=== PATIENT | female | born 1975 | race Two or more races ===

== ENCOUNTER → 2016-08-01 | Day surgery (SDC) | payer OTHER ==
--- NOTE | 2016-08-02 15:30 | PATH ---
Surgical Pathology Report Patient Name: NIC MALDONADO [facility]. Rec. #: [id number] /Age/Gender: 1975 (Age: 41) / F Account: [id number] Location: [facility] Taken: 08/01/2016 Received: 08/01/2016 Reported: 08/02/2016 Physicians: Crispin Banda M.D. Specimen(s) Received LEFT BREAST CALCIFICATIONS STEREOTACTIC BIOPSY Clinical History Nonpalpable lesion No calcifications seen in specimen Final Diagnosis BREAST, LEFT, CALCIFICATIONS, STEREOTACTIC BIOPSY: BENIGN BREAST TISSUE SHOWING STROMAL FIBROSIS, HEMOSIDERIN-LADEN MACROPHAGES AND FOCAL FOREIGN BODY GIANT CELL REACTION WITH RARE ASSOCIATED CALCIFIC MATERIAL, SUGGESTIVE OF HEMORRHAGIC CYST WITH RUPTURE AND REACTION. Electronically Signed Valery Ruiz M.D. Gross Description Received in formalin, labeled "left breast no calcifications seen," is a 6.5 x 3.5 x 0.4 cm aggregate of multiple briscoe-yellow, irregular portions of fibroadipose tissue admixed with blood clot. The formalin is filtered and the specimen is entirely submitted in 5 cassettes. Time to formalin fixation: 5 minutes Total formalin fixation time: Approximately 6 hours. /08/01/2016 saudi08/01/2016
== END | disposition home or self-care (01) ==
LOC: FMAMMOTONE 11:13
PROVIDERS: ATTEND Family Medicine
PROC: 0HBU3ZX Excision of Left Breast, Percutaneous Approach, Diagnostic (ICD-10-PCS; principal; 2016-08-01)
DX: N63 Unspecified lump in breast (principal); N60.32 Fibrosclerosis of left breast; N64.89 Other specified disorders of breast; R92.1 Mammographic calcification found on diagnostic imaging of breast
CPT/HCPCS: 19081; 87899; 88305-TC; A4648

== ENCOUNTER 2016-08-15 07:24 | Day surgery (SDC) | payer OTHER ==
[2016-08-13 09:47] VITALS: BMI 27.4
--- NOTE | 2016-08-13 14:19 | HP ---
Admitting History and Physical - Primary Care Physician PCP: Qi Solano - Admission Chief Complaint: left breast calcifications History of Present Illness: 41 yo female noted to have left UOQ calcifications on screening mammogram. Patient underwent a stereo bx (08/01/2016) which was c/w stromal fibrosis and foreign body giant cell reaction. The results were discordant and therefore now a surgical excision is being recommended. Patient presenting for left WE with NL. History Source: Patient Limitations to Obtaining History: No Limitations - Past Medical History ...LMP: 08/12/16 ...: No Heme/Onc: Yes: Anemia - Past Surgical History Additional Past Surgical History: bilateral breast reduction 2012 - Smoking History Smoking history: Never smoked Have you smoked in the past 12 months: No Aproximately how many cigarettes per day: 0 - Alcohol/Substance Use Hx Alcohol Use: No - Social History ADL: Independent History of Recent Travel: No (goes every february and june) Home Medications - Allergies Allergies/Adverse Reactions: Allergies Allergy/AdvReac Type Severity Reaction Status Date / Time No Known Drug Allergies Allergy Verified 08/13/16 09:26 - Home Medications Home Medications: Ambulatory Orders Iron,Carbonyl/Ascorbic Acid [Fe C Tablet] 1 tab PO DAILY 01/18/16 Family Disease History - Family Disease History Family History: Unremarkable Review of Systems - Review of Systems Constitutional: reports: No Symptoms Cardiovascular: reports: No Symptoms Respiratory: reports: No Symptoms Physical Examination Constitutional: Yes: Well Nourished Breast(s): Yes: Other (Well healed bilateral scars from reduction surgery. No suspicious masses or adenopathy noted bilaterally.) Problem List - Problems (1) Breast calcification, left Code(s): R92.1 - MAMMOGRAPHIC CALCIFCN FOUND ON DIAGNOSTIC IMAGING OF BREAST Assessment/Plan pLAN: Left breast WE with NL
[2016-08-15] MEDS ORDERED: PROPOFOL 20 ML ONE (09:45)
[2016-08-15] MEDS ORDERED: MIDAZOLAM HCL 2 MG/2 ML SINGLE DOSE VIAL ONE (09:45)
[2016-08-15] MEDS ORDERED: LIDOCAINE HCL 1%, 10 MG/ML (20ML VIAL) ONE (09:52)
[2016-08-15] MEDS ORDERED: KETOROLAC TROMETHAMINE 30 MG/1 ML VIAL IVPUSH PRN (10:05)
[2016-08-15] MEDS ORDERED: DEXTROSE 5%-0.45% SALINE 1,000 ML IV SCH (10:15)
[2016-08-15] MEDS ORDERED: DEXAMETHASONE SOD PHOSPHATE 4 MG/1 ML VIAL ONE (10:25)
[2016-08-15] MEDS ORDERED: ceFAZolin SODIUM 1 GM VIAL ONE (10:25)
[2016-08-15] MEDS ORDERED: ONDANSETRON 4 MG/2 ML VIAL IVPB PRN (10:30)
[2016-08-15] MEDS ORDERED: ONDANSETRON 4 MG/2 ML VIAL ONE (11:15)
[2016-08-15] MEDS ORDERED: LACTATED RINGERS SOLUTION 1,000 ML IV SCH (11:45)
[2016-08-15] MEDS ORDERED: KETOROLAC TROMETHAMINE 30 MG/1 ML VIAL ONE (12:13)
[2016-08-15] MEDS ORDERED: oxyCODONE HCL 5 MG TABLET PO PRN (12:20)
[2016-08-15 13:23] VITALS: TEMP 98.1
[2016-08-15] MEDS ORDERED: oxyCODONE HCL 5 MG TABLET ONE (13:26)
[2016-08-15 14:36] VITALS: BP 127/75; PULSE 94
--- NOTE | 2016-08-15 16:52 | OP ---
DATE OF OPERATION: 08/15/2016 PREOPERATIVE DIAGNOSIS: Left breast microcalcifications. POSTOPERATIVE DIAGNOSIS: Left breast microcalcifications. PROCEDURE: Left breast excisional biopsy with needle localization. SURGEON: Kathleen Solano MD BELL VALET: JEAN-PIERRE Mcrae ANESTHESIA: General. ANESTHESIOLOGIST: SPECIMEN: 1. Left breast tissue. 2. Inferior margin. ESTIMATED BLOOD LOSS: Minimal. INDICATION FOR PROCEDURE: The patient is a 41-year-old woman who had a baseline mammogram which showed suspicious calcifications in the left breast. A stereotactic biopsy was performed and was benign. However, the findings were felt to be discordant, and excision of the area was recommended. The procedure, risks, and complications were discussed with the patient prior to surgery. DESCRIPTION OF PROCEDURE: The patient was taken to breast imaging where she underwent localization of the clip in the left upper outer quadrant. She was then taken to ambulatory surgery where informed consent was obtained. The left breast was marked to establish laterality. She was then taken to the operating room and placed on the operating table in the supine position. Sequential compression devices were placed on both legs. General anesthesia was initiated. The left breast was prepped and draped in the usual fashion. A localizing wire was seen exiting the upper outer breast. The breast was prepped and draped in the usual fashion. A timeout was performed. An incision was made just inferior to the localizing wire. The incision was deepened using electrocautery. The dissection continued around the needle going down towards the chest wall. Once the tissue was sufficiently mobilized, the needle was disassembled, and the wire was brought into the operative field. The specimen was then removed and labeled with silk sutures with a long lateral suture and a short superior suture. A specimen radiograph did not show the clip. An additional margin of tissue was taken from the inferior part of the dissection. The clip was visualized in this specimen. The second specimen was labeled with a stitch at the final margin. All specimens were placed in formalin and sent to pathology for further examination. The wound was inspected for hemostasis which was satisfactory. The deep tissue was closed with interrupted sutures of 2-0 chromic. The dermis was closed with interrupted sutures of 3-0 Vicryl. The skin was infiltrated with 0.25% Marcaine. The skin was closed with a running subcuticular closure of 4-0 Monocryl. The wound was cleaned and dressed with a sterile gauze dressing. The patient tolerated the procedure well. At the end of the procedure, all sponge and instrument counts were correct. She was taken to the recovery area in satisfactory condition. KATHLEEN SOLANO M.D. [id number] MTDD
--- NOTE | 2016-08-16 15:21 | PATH ---
Surgical Pathology Report Patient Name: NIC MALDONADO [facility]. Rec. #: [id number] /Age/Gender: 1975 (Age: 41) / F Account: [id number] Location: [facility] Taken: 08/15/2016 Received: 08/15/2016 Reported: 08/16/2016 Physicians: Qi Solano M.D. Specimen(s) Received A: LEFT BREAST WIDE EXCISION B: LEFT BREAST INFERIOR MARGIN Clinical History Mammographic findings: Microcalcification Discordant pathology after core biopsy Final Diagnosis A. BREAST, LEFT, WIDE EXCISION: BENIGN BREAST TISSUE SHOWING FAT NECROSIS, FIBROSIS AND HISTIOCYTIC/GIANT CELL REACTION, SUGGESTIVE OF CYST RUPTURE WITH REACTION. B. BREAST, LEFT, INFERIOR MARGIN, EXCISION: BENIGN BREAST TISSUE SHOWING FOCI OF FRESH AND OLD HEMORRHAGE, FAT NECROSIS, FIBROSIS AND FOREIGN BODY GIANT CELL REACTION, SUGGESTIVE OF CYST RUPTURE WITH REACTION. Electronically Signed Valery Ruiz M.D. Gross Description A. Received in formalin, labeled "left breast wide excision suture lanier long lateral short superior," and is a 4.7 x 3.8 x 2.0 cm. briscoe-yellow, irregular, portion of fibroadipose tissue with a needle localization wire present within the specimen container but separate from the specimen. There is a short suture marking the superior aspect and a long suture marking the lateral aspect, per the surgeon. There is no skin present. An additional 2.5 x 2.2 x 0.8 cm portion of tissue is present within the specimen container. The specimen is inked as follows: superior and lateral blue; inferior green; medial yellow; anterior red; deep black. The specimen is serially sectioned from lateral to medial. Sectioning reveals yellow adipose tissue with an area suggestive of a prior biopsy site towards the anterior portion of the specimen. Nurse Intern sections are submitted in 10 cassettes as follows: 1- 5, prior biopsy site with superior, anterior, and inferior margins; 6, deep margin; 7, medial margin; 8, lateral margin; 9,10- sections from additional portion of tissue. Time to formalin fixation: 11 minutes Total formalin fixation time: Approximately 9 hours. B. Received in formalin labelled "left breast inferior margin suture at lateral margin" is a 2.6 x 2.2 x 1.2 cm portion of yellow fatty tissue with a suture marking the final margin. The margin is inked. Sectioned and totally submitted in 5 cassettes [facility]/08/15/2016 [facility]/08/15/2016
== END 2016-08-15 14:30 | disposition home or self-care (01) ==
LOC: FASU 07:24
PROVIDERS: ATTEND Surgery
PROC: 0HBU0ZX Excision of Left Breast, Open Approach, Diagnostic (ICD-10-PCS; principal; 2016-08-15 10:38)
DX: N64.1 Fat necrosis of breast (principal); N60.32 Fibrosclerosis of left breast; R92.1 Mammographic calcification found on diagnostic imaging of breast
CPT/HCPCS: 19281; 84703; 88307-TC; 94760

== ENCOUNTER 2017-02-11 15:46 | Emergency (ER) | payer OTHER ==
[2017-02-11 16:20] VITALS: BMI 28.3
[2017-02-11] MEDS ORDERED: SODIUM CHLORIDE 1,000 ML IV STA (17:06)
--- NOTE | 2017-02-11 17:09 | PDOC ---
History of Present Illness - History of Present Illness Initial Comments: 02/11/17 17:09 41F w/ hx of irregular periods and anemia (non-adherent in taking iron pills) presenting with lightheadedness. She reports 12 days of heavy vaginal bleeding with clots which is more than normal for her. She states that she became lightheaded, weak, nauseas and had 2 episodes of emesis today. On the way to her examination room, pt had a syncopal episode. 02/11/17 17:14 02/11/17 18:03 <Patricio Garcia - Last Filed: 02/11/17 19:26> <Kesha Conde - Last Filed: 02/12/17 02:22> - General Chief Complaint: Lightheaded Stated Complaint: VAGINAL BLEEDING, LIGHTHEADED, VOMIT Time Seen by Provider: 02/11/17 16:40 Past History - Past Medical History Anemia: Yes Asthma: No Cancer: No Cardiac Disorders: No CVA: No COPD: No CHF: No Dementia: No Diabetes: No GI Disorders: No Disorders: No HTN: No Hypercholesterolemia: No Liver Disease: No Suicide Attempt (Hx): No Seizures: No Thyroid Disease: No Comment:: 02/11/17 17:14 PMH: anemia PSH: b/l breast reduction, lumpectomy, 2 c-sections Meds: iron Allergies: NKDA Fam Hx: DM Social Hx: denies toxic habits 02/11/17 17:15 - Surgical History Abdominal Surgery: No Appendectomy: No Cardiac Surgery: No Cholecystectomy: No Lung Surgery: No Neurologic Surgery: No Orthopedic Surgery: No - Psycho/Social/Smoking Cessation Hx Anxiety: No Suicidal Ideation: No Smoking Status: No Smoking History: Never smoked Have you smoked in the past 12 months: No Number of Cigarettes Smoked Daily: 0 Hx Alcohol Use: No Drug/Substance Use Hx: No Substance Use Type: None Hx Substance Use Treatment: No <Patricio Garcia - Last Filed: 02/11/17 19:26> <Kesha Conde - Last Filed: 02/12/17 02:22> - Past Medical History Allergies/Adverse Reactions: Allergies Allergy/AdvReac Type Severity Reaction Status Date / Time No Known Drug Allergies Allergy Verified 02/11/17 16:17 Home Medications: Ambulatory Orders Iron,Carbonyl/Ascorbic Acid [Fe C Tablet] 1 tab PO DAILY 07/14/16 Review of Systems - Review of Systems Comments:: 02/11/17 17:16 GENERAL: No fever, chills, night sweats,+ weakness. HEAD, EYES, EARS, NOSE AND THROAT: No change in vision, ear pain, or sore throat CARDIOVASCULAR: No chest pain or palpitations RESPIRATORY: No cough, wheezing, or hemoptysis. GASTROINTESTINAL: + nausea, + vomiting, no diarrhea, constipation, or blood in the stool. GENITOURINARY: No dysuria, frequency, or urgency MUSCULOSKELETAL: No joint or muscle swelling or pain. SKIN: No rashes or pruritis ENDOCRINE: No increased thirst. No abnormal weight change NEUROLOGIC: No headache, + dizziness, + loss of consciousness. <Patricio Garcia - Last Filed: 02/11/17 19:26> *Physical Exam - Vital Signs Last Vital Signs Temp Pulse Resp BP Pulse Ox 98.8 F 90 18 124/65 99 02/11/17 16:17 02/11/17 16:17 02/11/17 16:17 02/11/17 16:17 02/11/17 16:17 - Physical Exam Comments: 02/11/17 17:17 GENERAL: Awake, alert, and fully oriented, in acute distress HEAD: normocephalic, atraumatic HEENT: PERRLA, EOMI, mucous membranes dry NECK: Normal ROM, supple, no lymphadenopathy, JVD, or masses HEART: tachycardic, normal S1 and S2, no murmurs, rubs or gallops, peripheral pulses normal and equal bilaterally. LUNGS: CTAB, no wheezing, no rales ABDOMEN: Soft, mildly tender in all 4 quadrants, nondistended, normoactive bowel sounds. No guarding, no rebound. No masses EXTREMITIES: Normal range of motion, no edema. SKIN: Warm, dry, no rashes or lesions noted. NEUROLOGICAL: Cranial nerves II through XII grossly intact. Normal speech Pelvic Exam: <Patricio Garcia - Last Filed: 02/11/17 19:26> - Vital Signs Last Vital Signs Temp Pulse Resp BP Pulse Ox 98.5 F 76 18 126/74 100 02/11/17 19:46 02/11/17 19:46 02/11/17 19:46 02/11/17 19:46 02/11/17 19:46 <Kesha Conde - Last Filed: 02/12/17 02:22> ED Treatment Course - LABORATORY CBC & Chemistry Diagram: 02/11/17 17:25 02/11/17 17:25 <Patricio aGrcia - Last Filed: 02/11/17 19:26> - LABORATORY CBC & Chemistry Diagram: 02/11/17 17:25 02/11/17 17:25 - ADDITIONAL ORDERS Additional order review: Laboratory Results 02/11/17 02/11/17 02/11/17 18:11 17:25 17:25 INR PTT (Actin FS) Sodium 140 Potassium 4.0 Chloride 104 Carbon Dioxide 26 Anion Gap 10 BUN 11 Creatinine 0.9 D Creat Clearance w eGFR > 60 Random Glucose 97 Calcium 8.6 Total Bilirubin 0.3 D AST 12 L ALT 18 Alkaline Phosphatase 66 Creatine Kinase 79 Troponin I < 0.02 Total Protein 7.9 Albumin 3.6 Urine Color Urine Appearance Urine pH Urine Protein Urine Glucose (UA) Urine Ketones Urine Blood Urine Nitrite Urine Bilirubin Urine Urobilinogen Ur Leukocyte Esterase Urine RBC Urine WBC Ur Epithelial Cells Urine HCG, Qual Blood Type Cancelled Antibody Screen Cancelled Spec Expiration Date Cancelled 02/11/17 02/11/17 17:25 17:25 INR 1.03 PTT (Actin FS) 26.8 L Sodium Potassium Chloride Carbon Dioxide Anion Gap BUN Creatinine Creat Clearance w eGFR Random Glucose Calcium Total Bilirubin AST ALT Alkaline Phosphatase Creatine Kinase Troponin I Total Protein Albumin Urine Color Colorless Urine Appearance Clear Urine pH 8.0 Urine Protein Negative Urine Glucose (UA) Negative Urine Ketones Negative Urine Blood 1+ H Urine Nitrite Negative Urine Bilirubin Negative Urine Urobilinogen Negative Ur Leukocyte Esterase Negative Urine RBC <1 Urine WBC 1 Ur Epithelial Cells Rare Urine HCG, Qual Negative Blood Type Antibody Screen Spec Expiration Date 02/11/17 17:25 RBC 3.96 MCV 72.9 L MCHC 31.8 L RDW 19.5 H MPV 8.8 Neutrophils % 70.8 D Lymphocytes % 20.7 D Monocytes % 6.9 Eosinophils % 0.2 D Basophils % 1.4 D - Medications Given in the ED: ED Medications Discontinued Medications Generic Name Dose Route Start Last Admin Trade Name Freq PRN Reason Stop Dose Admin Acetaminophen 1,000 mg 02/11/17 18:43 02/11/17 19:02 Ofirmev Injection - IVPB 02/11/17 18:44 1,000 mg ONCE ONE Administration Sodium Chloride 1,000 mls @ 1,000 mls/hr 02/11/17 17:06 02/11/17 17:33 Normal Saline - IV 02/11/17 18:05 1,000 mls/hr ASDIR STA Administration Sodium Chloride 500 mls @ 500 mls/hr 02/11/17 18:42 02/11/17 18:56 Normal Saline - IV 02/11/17 19:41 500 mls/hr ASDIR STA Administration <Kesha Conde - Last Filed: 02/12/17 02:22> Medical Decision Making - Medical Decision Making 02/11/17 18:03 41F w/ hx of irregular periods and anemia (non-adherent in taking iron pills) presenting with vaginal bleeding for 12 days with lightheadedness, emesis, weakness, and an episode of syncope. Etiology likely due to anemia and dehydration. -CBC: Hgb of 9 and MCV of 79 -CMP: wnl -PT/PTT/INR: wnl -EKG: normal sinus rhythm -cardiac profile: normal -UA: -preg test: 02/11/17 19:10 02/11/17 19:12 02/11/17 19:26 <Patricio Garcia - Last Filed: 02/11/17 19:26> *DC/Admit/Observation/Transfer - Discharge Dispostion Admit: No <Patricio Garcia - Last Filed: 02/11/17 19:26> <Kesha Conde - Last Filed: 02/12/17 02:22> Diagnosis at time of Disposition: Syncope Qualifiers: Syncope type: unspecified Qualified Code(s): R55 - Syncope and collapse - Discharge Dispostion Disposition: HOME - Referrals Referrals: Nohemy William MD [Primary Care Provider] - - Patient Instructions Printed Discharge Instructions: DI for Syncope in Adults (Fainting), Iron- Deficiency Anemia, DI for Vaginal Bleeding Additional Instructions: Your symptoms of lightheadedness, weakness, nausea, and vomiting are likely due to anemia and dehydration in the setting of your recent significant vaginal bleeding. Your hemoglobin level was found to be 9 which is consistent with your baseline. You were given normal saline and tylenol for your pain. At home, drink plenty of fluids, take your iron pills as directed, and see your OBGYN within several days to follow up and discuss taking medications like oral contraceptives to decrease your menstrual bleeding. If your symptoms worsen, or you develop any other concerning symptoms, return to the ED. ED Attending (Resident) HPI <Patricio Garcia - Last Filed: 02/11/17 19:26> - General Exam Limitations: No Limitations - History of Present Illness Severity: mild Associated Symptoms: reports: weakness - Attending Attestation I agree with resident's note.: Yes <Kesha Conde - Last Filed: 02/12/17 02:22> - General Chief Complaint: Lightheaded Stated Complaint: VAGINAL BLEEDING, LIGHTHEADED, VOMIT Time Seen by Provider: 02/11/17 16:40
[2017-02-11 18:10] LABS: BASOPHIL 1.4 % (0-2.0); EOSINOPHIL 0.2 % (0-4.5); MCH 23.2 pg (25.7-33.7); MCHC 31.8 g/dl (32.0-36.0); MEAN CELL VOLUME 72.9 fl (80-96); MEAN PLT VOLUME 8.8 fl (7.5-11.1); NEUTROPHILS 70.8 % (42.8-82.8); PLATELET COUNT 344 K/MM3 (134-434); RDW 19.5 % (11.6-15.6); WHITE BLOOD COUNT 7.2 K/mm3 (4.0-10.0)
[2017-02-11 18:21] LABS: INR 1.03 (0.82-1.09); PROTHROMBIN TIME (PATIENT) 11.3 SEC (9.98-11.88)
[2017-02-11 18:24] LABS: ACTIVATED PTT 26.8 SECONDS (26.9-34.4)
[2017-02-11 18:32] LABS: ALBUMIN 3.6 g/dl (3.4-5.0); ANION GAP 10 (8-16); BILIRUBIN,TOTAL 0.3 mg/dL (0.2-1.0); CALCIUM 8.6 mg/dL (8.5-10.1); CO2 26 mmol/L (21-32); CREATININE 0.9 mg/dL (0.55-1.02); GLUCOSE,RANDOM 97 mg/dL (74-106); SGOT/AST 12 U/L (15-37); SGPT/ALT 18 U/L (12-78)
[2017-02-11 18:33] LABS: ALK PHOS 66 U/L (45-117); TOT PROT 7.9 g/dl (6.4-8.2)
[2017-02-11 18:36] LABS: CPK 79 IU/L (26-192); TROPONIN I < 0.02 ng/ml (0.00-0.05)
[2017-02-11] MEDS ORDERED: SODIUM CHLORIDE 500 ML IV STA (18:42)
[2017-02-11] MEDS ORDERED: ACETAMINOPHEN 1000 MG/100 ML VIAL (NON FORMULARY) IVPB ONE (18:43)
[2017-02-11 19:25] LABS: URINE APPEARANCE CLEAR; URINE BILIRUBIN NEGATIVE (NEGATIVE); URINE BLOOD 1+ (NEGATIVE); URINE COLOR COLORLESS; URINE GLUCOSE (UA) NEGATIVE (NEGATIVE); URINE KETONE NEGATIVE (NEGATIVE); URINE LEUK ESTERASE NEGATIVE (NEGATIVE); URINE NITRITE NEGATIVE (NEGATIVE); URINE PROTEIN NEGATIVE (NEGATIVE); URINE UROBILINOGEN NEGATIVE mg/dL (0.2-1.0)
[2017-02-11 19:36] LABS: URINE RBC <1 /hpf (0-3); URINE WBC 1 /hpf (3-5)
[2017-02-11 19:46] VITALS: BP 126/74; PULSE 76; TEMP 98.5
--- NOTE | 2017-02-11 20:40 | PDOC ---
Attending Attestation - Resident Resident Name: Patricio Garcia - ED Attending Attestation I have performed the following: I have examined & evaluated the patient, The case was reviewed & discussed with the resident, I agree w/resident's findings & plan, Exceptions are as noted - HPI HPI: 02/12/17 02:23 41 yo female p/w vaginal bleeding and feeling dizzy heent wnl lungs cta b/l cvs [id number] abd no rebound no guarding neuro no gross focal deficits 02/12/17 02:24 - Physicial Exam PE: 02/12/17 02:24 please see above note - Medical Decision Making 02/11/17 20:40 pt is stable /discharged to followup with her best worker
--- NOTE | 2017-02-12 14:45 | EKG ---
Test Reason : Blood Pressure : / mmHG Vent. Rate : 079 BPM Atrial Rate : 079 BPM P-R Int : 144 ms QRS Dur : 090 ms QT Int : 394 ms P-R-T Axes : 070 061 031 degrees QTc Int : 451 ms NORMAL SINUS RHYTHM NORMAL ECG WHEN COMPARED WITH ECG OF 14-AUG-2016 09:58, NO SIGNIFICANT CHANGE WAS FOUND Confirmed by YULISSA SAINI MD ([id number]) on 02/12/2017 2:45:00 PM Referred By: Confirmed By:YULISSA SAINI MD
== END 2017-02-11 20:56 | disposition home or self-care (01) ==
LOC: JER 15:46
PROC: 3E033NZ Introduction of Analgesics, Hypnotics, Sedatives into Peripheral Vein, Percutaneous Approach (ICD-10-PCS; principal; 2017-02-11)
PROC: 3E0337Z Introduction of Electrolytic and Water Balance Substance into Peripheral Vein, Percutaneous Approach (ICD-10-PCS; 2017-02-11)
DX: R55 Syncope and collapse (principal); D64.9 Anemia, unspecified
CPT/HCPCS: 36415; 80053; 81003; 81015; 84484; 84703; 85025; 85610; 85730; 93005; 93010; 96361; 96374; 99285-25

== ENCOUNTER 2019-01-12 02:12 | Emergency (ER) | payer OTHER ==
[2019-01-12 02:48] VITALS: BP 133/83; PULSE 81; TEMP 98.7; BMI 26.6
--- NOTE | 2019-01-12 04:05 | PDOC ---
*Physical Exam - Vital Signs Last Vital Signs Temp Pulse Resp BP Pulse Ox 98.7 F 81 19 133/83 98 01/12/19 02:12 01/12/19 02:12 01/12/19 02:12 01/12/19 02:12 01/12/19 02:12 Medical Decision Making - Medical Decision Making 01/12/19 04:05 *DC/Admit/Observation/Transfer Diagnosis at time of Disposition: Patient left before evaluation by physician - Discharge Dispostion Disposition: ELOPED - Referrals Referrals: Angie Rivas MD [Primary Care Provider] - - Patient Instructions - Post Discharge Activity
== END 2019-01-12 04:06 | disposition left against medical advice (07) ==
LOC: JER 02:12
DX: Z53.21 Procedure and treatment not carried out due to patient leaving prior to being seen by health care provider (principal)
CPT/HCPCS: 99281-25

== ENCOUNTER 2020-04-16 15:20 | Emergency (ER) | payer OTHER ==
[2020-04-16 15:26] VITALS: BP 125/87; PULSE 89; TEMP 97; BMI 28.8
--- OUTSIDE RECORDS SUMMARY | 2020-04-16 15:35 | XMS ---
:1975 Author Organization [facility] Support Name Relationship Address Phone BRITTANY [place] [address] [place] [address] AMIRA MALDONADO SISTER [address] [place] [address] AMIRA MALDONADO Unavailable [address] [place] [address] Re-disclosure Warning The records that you are about to access may contain information from federally- assisted alcohol or drug abuse programs. If such information is present, then the following federally mandated warning applies: This information has been disclosed to you from records protected by federal confidentiality rules (42 CFR part 2). The federal rules prohibit you from making any further disclosure of this information unless further disclosure is expressly permitted by the written consent of the person to whom it pertains or as otherwise permitted by 42 CFR part 2. A general authorization for the release of medical or other information is NOT sufficient for this purpose. The Federal rules restrict any use of the information to criminally investigate or prosecute any alcohol or drug abuse patient.The records that you are about to access may contain highly sensitive health information, the redisclosure of which is protected by Article 27-F of the [facility] [place] Public Health law. If you continue you may haveaccess to information: Regarding HIV / AIDS; Provided by facilities licensed or operated by the [facility] [place] Office of Mental Health; or Provided by the [facility] [place] Office for People With Developmental Disabilities. If such information is present, then the following [facility] [place] mandated warning applies: This information has been disclosed to you from confidential records which are protected by state law. State law prohibits you from making any further disclosure of this information without the specific written consent of the person to whom it pertains, or as otherwise permitted by law. Any unauthorized further disclosure in violation of state law may result in a fine or care home sentence or both. A general authorization for the release of medical or other information is NOT sufficient authorization for further disclosure. Insurance Providers Payer name Policy type Policy ID Covered Covered green party's Policy P ronak / Coverage green party ID relationship to [place] [employer] type [place] [employer] [id number]
--- NOTE | 2020-04-16 16:22 | PDOC ---
History of Present Illness - General Chief Complaint: Pain Stated Complaint: LT BREAST PAIN Time Seen by Provider: 04/16/20 15:33 History Source: Patient Exam Limitations: No Limitations - History of Present Illness Initial Comments: 04/16/20 16:17 45 y/o Female presents to ED with complaints of left breast pain. Patient states had a mammogram done 2 days ago which she states was done "aggressively" patient states her right breast does not hurt and states every time she moves or touched her left breast it is painful. Patient denies redness swelling, nipple drainage, or skin discoloration. Is this a multiple visit Asthma Patient?: No Timing/Duration: other Severity: mild Associated Symptoms: reports: denies symptoms Past History - Travel History Traveled outside of the country in the last 30 days: No Close contact w/someone who was outside of country & ill: No - Medical History Allergies/Adverse Reactions: Allergies Allergy/AdvReac Type Severity Reaction Status Date / Time No Known Drug Allergies Allergy Verified 04/16/20 15:26 Home Medications: Ambulatory Orders Iron,Carbonyl/Ascorbic Acid [Fe C Tablet] 1 tab PO DAILY 01/18/16 Oxycodone HCl/Acetaminophen [Percocet 5-325 mg Tablet] 1 tab PO TID PRN #9 tab MDD 3 04/16/20 Anemia: Yes Asthma: No Cancer: No Cardiac Disorders: No CVA: No COPD: No CHF: No Dementia: No Diabetes: No GI Disorders: No Disorders: No HTN: No Hypercholesterolemia: No Liver Disease: No Seizures: No Thyroid Disease: No - Surgical History Abdominal Surgery: No Appendectomy: No Cardiac Surgery: No Cholecystectomy: No Lung Surgery: No Neurologic Surgery: No Orthopedic Surgery: No - Reproductive History Is Patient Now?: No - Psycho-Social/Smoking History Patient Lives Alone: No Lives with/in: spouse/SO Smoking Status: No Smoking History: Never smoked Have you smoked in the past 12 months: No Number of Cigarettes Smoked Daily: 0 Review of Systems - Review of Systems Able to Perform ROS?: No Is the patient limited Turkish proficient: No Constitutional: No: Symptoms Reported Musculoskeletal: No: Symptoms Reported Integumentary: Yes: Other (Left breast pain) Neurological: No: Symptoms reported *Physical Exam - Vital Signs Last Vital Signs Temp Pulse Resp BP Pulse Ox 97 F L 89 18 125/87 99 04/16/20 15:23 04/16/20 15:23 04/16/20 15:23 04/16/20 15:23 04/16/20 15:23 - Physical Exam General Appearance: Yes: Nourished, Appropriately Dressed. No: Apparent Distress Neck: positive: Supple. negative: Lymphadenopathy (R), Lymphadenopathy (L) Respiratory/Chest: positive: Lungs Clear, Normal Breath Sounds, Other (Left breast tender to the axillary region extending to the lateral aspect of left breast. No palpable mass no fluctuance no redness no increased warmth no nipple drainage no dimpling no skin discoloration. Right breast intact without tenderness.). negative: Respiratory Distress, Accessory Muscle Use Cardiovascular: positive: Regular Rhythm, Regular Rate. negative: Murmur Gastrointestinal/Abdominal: positive: Soft. negative: Tenderness Integumentary: positive: Normal Color, Dry, Warm, Moist Neurologic: positive: Motor Strength 5/5 (Ambulatory) Medical Decision Making - Medical Decision Making 04/16/20 16:22 Chief complaint: Left breast pain after receiving a mammogram 2 days ago. Patient has no other complaints at this time but denies any masses to left breast. Exam: Patient tender to the lateral aspect of left breast without acute findings. Plan: Percocet discharged home with the same. Patient to follow-up with her PURIFICATION OPERATOR in regards to results Discharge - Discharge Information Problems reviewed: Yes Clinical Impression/Diagnosis: Breast pain, left Condition: Good Disposition: HOME - Additional Discharge Information Prescriptions: Oxycodone HCl/Acetaminophen [Percocet 5-325 mg Tablet] 1 tab PO TID PRN #9 tab MDD 3 PRN Reason: Pain - Follow up/Referral Referrals: Angie Rivas MD [Primary Care Provider] - - Patient Discharge Instructions Patient Printed Discharge Instructions: DI for Breast Pain (Mastalgia) Additional Instructions: Please wear exercise bras or something similar to provide some support and avoid movement. May take Percocet as needed at night for discomfort and take Tylenol during the day. Please follow-up with your PURIFICATION OPERATOR in regards to your mammogram results - Post Discharge Activity
== END 2020-04-16 16:43 | disposition home or self-care (01) ==
LOC: JERFT 15:20
DX: N64.4 Mastodynia (principal)
CPT/HCPCS: 99284-25